=== PATIENT | female | born 1935 | race Asian ===

== ENCOUNTER 2017-02-04 13:02 | Outpatient (CLI) | payer OTHER | END 2017-02-04 19:49 | disposition home or self-care (01) | LOC: LAB 13:02 | DX: N39.0 Urinary tract infection, site not specified (principal) | CPT/HCPCS: 87077; 87086; 87088; 87185 ==

== ENCOUNTER 2017-05-03 12:41 | Outpatient (CLI) | payer OTHER | END 2017-05-03 19:37 | disposition home or self-care (01) | LOC: LAB 12:41 | DX: N39.0 Urinary tract infection, site not specified (principal) | CPT/HCPCS: 87077; 87086; 87088; 87186 ==

== ENCOUNTER 2017-11-02 15:05 | Outpatient (CLI) | payer OTHER | END 2017-11-02 19:52 | disposition home or self-care (01) | LOC: LAB 15:05 | DX: R30.0 Dysuria (principal) | CPT/HCPCS: 87077; 87086; 87088; 87186 ==

== ENCOUNTER 2018-01-21 11:28 | Outpatient (CLI) | payer OTHER | END 2018-01-21 22:45 | disposition home or self-care (01) | LOC: LAB 11:28 | DX: R30.0 Dysuria (principal) | CPT/HCPCS: 87077; 87086; 87088; 87186 ==

== ENCOUNTER 2018-08-16 12:57 | Outpatient (CLI) | payer OTHER | END 2018-08-16 21:30 | disposition home or self-care (01) | LOC: LAB 12:57 | DX: R10.84 Generalized abdominal pain (principal) | CPT/HCPCS: 87086; 87088 ==

== ENCOUNTER 2018-09-09 08:35 | Outpatient (CLI) | payer OTHER | END 2018-09-09 20:49 | disposition home or self-care (01) | LOC: CT 08:35 | DX: R10.84 Generalized abdominal pain (principal) | CPT/HCPCS: 82565; 84520; Q9963 ==

== ENCOUNTER 2019-06-08 11:50 | Outpatient (CLI) | payer OTHER | END 2019-06-08 19:39 | disposition home or self-care (01) | LOC: MAMMO 11:50 | DX: Z12.31 Encounter for screening mammogram for malignant neoplasm of breast (principal) ==

== ENCOUNTER 2019-07-24 14:08 | Outpatient (CLI) | payer OTHER | END 2019-07-24 19:18 | disposition home or self-care (01) | LOC: LAB 14:08 | DX: R30.0 Dysuria (principal) | CPT/HCPCS: 87077; 87086; 87088; 87186 ==

== ENCOUNTER 2023-02-10 11:23 | Outpatient (CLI) | payer OTHER ==
[2023-02-10 12:56] LABS: PLATELET COUNT 187 K/uL (152-353)
[2023-02-10 13:21] LABS: POTASSIUM 3.6 mmol/L (3.6-5.2)
== END 2023-02-10 17:00 | disposition home or self-care (01) ==
LOC: RAD 11:23
PROVIDERS: ATTEND Internal Medicine
DX: I10 Essential (primary) hypertension (principal); M79.89 Other specified soft tissue disorders
CPT/HCPCS: 36415; 80053; 80061; 81002; 84439; 84443; 84550; 85027; 85379; 85652